=== PATIENT | male | born 1975 | race African-American/Black ===

== ENCOUNTER 2018-06-13 19:05 | Emergency (ER) | payer MEDICAID, OTHER ==
[~2018-06-13] VITALS: Ht 139.7 cm; Wt 61.2 kg
[2018-06-13] MEDS ORDERED: ONDANSETRON HCL 4 MG/2 ML VIAL IV ONE (19:30)
[2018-06-13] MEDS ORDERED: MORPHINE SULFATE 10 MG/ML INJ 1ML SDV IV ONE (19:30)
[2018-06-13] MEDS ORDERED: SODIUM CHLORIDE 0.9% 2,550 ML IV ONE (19:30)
[2018-06-13] MEDS ORDERED: OXYCODONE W/ ACETAMINOPHEN 5/325MG TABLET GT ONE (19:45)
[2018-06-13] MEDS ORDERED: LEVOFLOXACIN 750MG 150 ML IV SCH (20:00)
[2018-06-13 20:17] LABS: Basophils # (auto) 0.1 uL; Lymphocytes # (auto) 1.8 uL; Nucleated Red Blood Cells % 0.1 %; Red Cell Distribution Width 17.8 % (11.8-14.3)
[2018-06-13 20:19] LABS: Basophils % (auto) 0.8 % (0.0-2.0); Eosinophils # (auto) 0.5 uL; Eosinophils % (auto) 7.9 % (0.0-7.0); Hematocrit 43.8 % (41.0-53.0); Hemoglobin 13.8 g/dL (13.5-17.5); Lymphocytes % (auto) 25.9 % (10.0-50.0); Mean Corpuscular Hgb Conc. 31.5 g/dL (32.0-36.0); Mean Corpuscular Volume 73.1 fL (80.0-100.0); Monocytes # (auto) 0.4 uL; Monocytes % (auto) 5.2 % (0.0-12.0); Neutrophils # (auto) 4.1 uL; Neutrophils % (auto) 60.2 % (37.0-80.0); Platelet Count (auto) 361 10^3/uL (140-450); Red Blood Cells 5.99 10^6/uL (4.5-5.90); White Blood Cell 6.9 10^3/uL (4.4-10.8)
[2018-06-13 20:33] LABS: Albumin 3.2 g/dL (3.4-5.0); Anion Gap 9 (5-15); Blood Urea Nitrogen 10 mg/dL (7-18); Calcium 8.6 mg/dL (8.5-10.1); Carbon Dioxide 21 mmol/L (21-32); Chloride 108 mmol/L (98-107); Glucose 79 mg/dL (74-106); Potassium 3.7 mmol/L (3.5-5.1); Sodium 138 mmol/L (136-145)
[2018-06-13 20:35] LABS: Alanine Aminotransferase 11 U/L (16-61); Aspartate Aminotransferase 6 U/L (15-37); BUN/Creatinine Ratio 11.8; GFR African American 127 mL/min; GFR Non-African American 105 mL/min
[2018-06-13 20:40] LABS: Alkaline Phosphatase 138 U/L (45-117); Bilirubin, Total 0.3 mg/dL (0.2-1.0); INR 1.28 (0.9-1.15); Prothrombin Time 13.5 sec (9.27-12.13); Total Protein 9.3 g/dL (6.4-8.2)
[2018-06-13] MEDS ORDERED: IOHEXOL 300 MG/ML 100ML BOTTLE IJ ONE (20:45)
[2018-06-13] MEDS ORDERED: NALBUPHINE HCL 10 MG/1ml INJECTION IV ONE (21:00)
[2018-06-13 22:10] VITALS: BP 151/91
[2018-06-13 23:17] LABS: Urine Bacteria MANY /hpf (None Seen); Urine Blood 3+ /uL (Negative); Urine Mucus FEW (None Seen); Urine Specific Gravity 1.024 (1.001-1.035); Urine WBC 237 /hpf (0 - 3); Urine WBC Clumps PRESENT /hpf (None Seen)
== END 2018-06-13 23:56 | disposition home or self-care (01) ==
LOC: EDBD 19:05 → ER 19:15
DX: M53.3 Sacrococcygeal disorders, not elsewhere classified (principal); N39.0 Urinary tract infection, site not specified; K59.00 Constipation, unspecified; Z93.1 Gastrostomy status; Z88.6 Allergy status to analgesic agent
CPT/HCPCS: 36415; 43760; 72220; 74177; 80053; 81001; 83605; 84484; 85025; 85379; 85610; 85730; 87040; 87086; 96365; 96375; 99285; J1956; J2300; J2405; J7030; Q9967

== ENCOUNTER 2019-07-15 12:38 | Inpatient (IN) | payer MEDICAID ==
[~2019-07-15] VITALS: Ht 188 cm; Wt 154.8 kg
[~2019-07-15 12:38] MED LIST: AMIT10TA6 PO; GABA300C10 PO; HYDR-4833 PO; OXY20CRT PO
[2019-07-15 14:16] LABS: Basophils # (auto) 0 uL; Eosinophils # (auto) 0 uL; Eosinophils % (auto) 0.1 % (0.0-7.0)
[2019-07-15 14:18] LABS: Basophils % (auto) 0.2 % (0.0-2.0); Hematocrit 39.8 % (41.0-53.0); Hemoglobin 11.8 g/dL (13.5-17.5); Lymphocytes # (auto) 0.6 uL; Lymphocytes % (auto) 5.3 % (10.0-50.0); Mean Corpuscular Hemoglobin 20.2 pg (28.0-32.0); Mean Corpuscular Hgb Conc. 29.7 g/dL (32.0-36.0); Monocytes # (auto) 0.6 uL; Monocytes % (auto) 5.2 % (0.0-12.0); Neutrophils # (auto) 10.3 uL; Neutrophils % (auto) 89.2 % (37.0-80.0); Platelet Count (auto) 367 10^3/uL (140-450); Red Blood Cells 5.85 10^6/uL (4.5-5.90); Red Cell Distribution Width 18.7 % (11.8-14.3); White Blood Cell 11.5 10^3/uL (4.4-10.8)
[2019-07-15 14:29] LABS: Potassium 3.2 mmol/L (3.5-5.1)
[2019-07-15 14:33] LABS: Albumin 3.4 g/dL (3.4-5.0); BUN/Creatinine Ratio 13.8; Magnesium 2.4 mg/dL (1.6-2.6)
[2019-07-15 14:36] LABS: Bilirubin, Total 0.7 mg/dL (0.2-1.0)
[2019-07-15 15:26] LABS: Urine Bacteria MOD /hpf (None Seen); Urine Blood 2+ /uL (Negative); Urine Mucus FEW (None Seen); Urine Specific Gravity 1.012 (1.001-1.035); Urine WBC 111 /hpf (0 - 3)
[2019-07-15] MEDS ORDERED: HYDROmorphone HCL 2 MG/ML VL IV ONE (17:30)
[2019-07-15] MEDS ORDERED: PROMETHAZINE HCL 25 MG/ML 1ML IV ONE (17:30)
[2019-07-15] MEDS ORDERED: cefTRIAXone 1GM/50ML D5W 50 ML IV ONE (18:30)
[2019-07-15] MEDS ORDERED: POTASSIUM EFFERVESENT TAB 25 MEQ PO ONE (19:00)
[2019-07-15] MEDS ORDERED: NITROGLYCERIN 0.4 MG SL TAB SL PRN (19:30)
[2019-07-15] MEDS ORDERED: ACETAMINOPHEN 500 MG TAB PO PRN (19:30)
[2019-07-15] MEDS ORDERED: MORPHINE SULF INJ 2 MG/ML SYRINGE 1ML IV PRN ×3 (19:30→19:45)
[2019-07-15] MEDS ORDERED: ONDANSETRON HCL 4 MG/2 ML VIAL IV PRN (19:30)
[2019-07-15] MEDS: SODIUM CHLORIDE 0.9% 1,000 ML IV SCH (21:43)
[2019-07-15] MEDS: oxyCODONE ER 20 MG TAB PO SCH (21:55)
[2019-07-15 22:00] VITALS: BP 123/75
[2019-07-15] MEDS ORDERED: HYDROcodone-ACET 5/325MG TAB PO SCH (22:00)
--- NOTE | 2019-07-15 22:00 | NUR ---
MS admit from ER SESSIONS,EDWARD admitted to tele/MS after SBAR received. Patient oriented to Abeba smith RN, unit, room, bed, and unit policies regarding patient care and visiting hours. Patient weighed by bedscale and encouraged to call if they need something. All questions and concerns addressed, patient verbalized understanding. Note: Came per strecher awake alert oriented x 4,covering his face with blanket, placed on the bed comfortably, vital sign checked.
--- NOTE | 2019-07-15 22:00 | NUR ---
Checked the g.tube placement, refused to infuse a little air, so just checked for gastric content, there is, its in placed.
[2019-07-15] MEDS: GABAPENTIN 300 MG CAP PO SCH (22:16)
[2019-07-15] MEDS: AMITRIPTYLINE HCL 10 MG TAB PO SCH (22:16)
--- NOTE | 2019-07-15 22:30 | NUR ---
Refused to remove his dressing in the back of the sacrum and of course we cant take a picture of it, and said the wound care nurse will be the one to do it, and refused to change the diaper that he is on , that is wet and said its a little bit only.
[2019-07-16 00:58] VITALS: BP 123/75
[2019-07-16 04:43] VITALS: BP 123/70
[2019-07-16 05:20] LABS: Basophils # (auto) 0 uL; Basophils % (auto) 0.4 % (0.0-2.0); Eosinophils # (auto) 0 uL; Eosinophils % (auto) 0.6 % (0.0-7.0); Hematocrit 38.6 % (41.0-53.0); Hemoglobin 11.5 g/dL (13.5-17.5); Lymphocytes # (auto) 1.3 uL; Lymphocytes % (auto) 15.7 % (10.0-50.0); Mean Corpuscular Hemoglobin 20.5 pg (28.0-32.0); Mean Corpuscular Hgb Conc. 29.9 g/dL (32.0-36.0); Mean Corpuscular Volume 68.6 fL (80.0-100.0); Monocytes # (auto) 0.5 uL; Monocytes % (auto) 6.5 % (0.0-12.0); Neutrophils # (auto) 6.2 uL; Neutrophils % (auto) 76.8 % (37.0-80.0); Platelet Count (auto) 333 10^3/uL (140-450); Red Blood Cells 5.63 10^6/uL (4.5-5.90)
--- NOTE | 2019-07-16 05:30 | NUR ---
Refused to change his own diaper, covered his face with the blanket.
[2019-07-16] MEDS: GABAPENTIN 300 MG CAP PO SCH ×3 (05:34→21:48)
[2019-07-16] MEDS: AMITRIPTYLINE HCL 10 MG TAB PO SCH ×3 (05:34→21:48)
[2019-07-16] MEDS: SODIUM CHLORIDE 0.9% 1,000 ML IV SCH (05:39)
[2019-07-16 06:00] LABS: Potassium 3.6 mmol/L (3.5-5.1)
[2019-07-16 06:10] LABS: BUN/Creatinine Ratio 17.1; Calcium 9.2 mg/dL (8.5-10.1)
--- NOTE | 2019-07-16 07:18 | NUR ---
Report given to Sourav Ward, patient is resting ,no distress, does not want to be disturb, and want med. to be given in his g.tube, though regular diet ordered.
--- NOTE | 2019-07-16 07:25 | NUR ---
Open Shift Note Received report on patient, asleep in bed with covers over head, awoken to name. Patient shows no signs of distress at this time. Patient refuses to turn to assess sacrum and take wound care photos. Patient also refusing to allow assessment of suprapubic catheter, pulled covers back up over head. Bed in lowest locked position, side rails up x2 and call light within reach. Will continue to monitor.
[2019-07-16 09:00] VITALS: BP 115/63
[2019-07-16] MEDS: FAMOTIDINE 20 MG TAB PO SCH (09:58)
[2019-07-16] MEDS: oxyCODONE ER 20 MG TAB PO SCH ×2 (09:58→21:48)
[2019-07-16] MEDS: cefTRIAXone 1GM/50ML D5W 50 ML IV SCH (09:58)
[2019-07-16] MEDS ORDERED: DOCUSATE SOD 100 MG CAP PO SCH (10:30)
[2019-07-16] MEDS ORDERED: POLYETHYLENE GLYCOL 17 GM PWDR PO ONE (10:30)
[2019-07-16] MEDS ORDERED: LACTULOSE 20Gm/30ML SOLN PO PRN (11:15)
[2019-07-16] MEDS ORDERED: HYDROmorphone HCL 2 MG/ML VL IV ONE (11:15)
--- NOTE | 2019-07-16 11:53 | NUR ---
o/c note spoke to Mariya at [facility] ph [phone] , pt will resume HH with [facility] per Mariya start of care on Wednesday
--- NOTE | 2019-07-16 12:00 | NUR ---
Faxed [facility] Faxed patient's face sheet, last progress note and social service order to [facility]. [phone].
[2019-07-16] MEDS: DOCUSATE ORAL LIQUID 100 MG/10 ML UD GT SCH ×2 (12:18→21:48)
--- NOTE | 2019-07-16 12:42 | NUR ---
auth for [facility] per Princess ZEPEDA for [facility] is H [id number]
[2019-07-16 13:00] VITALS: BP 126/81
--- NOTE | 2019-07-16 15:37 | NUR ---
Dressing Change-Admission photo taken Patient allowed for nurse to remove previous dressing on sacrum and take admission photo. Wound cleansed with wound cleanser, ABD pads applied, dressing applied using diapers and medipore tape per patients demands.
[2019-07-16 16:43] VITALS: BP 136/58
--- NOTE | 2019-07-16 18:59 | NUR ---
Closing Note Patient sitting up in bed, shows no signs of distress at this time. Bed in lowest locked position, side rails up x2 and call light within reach.
--- NOTE | 2019-07-16 20:15 | NUR ---
Assessment Patient is A&O x4. Currently on RA with no s/s of distress or SOB. C/O 06/13 pain n back and abdomen. Pain management orders discussed with patient. 22 gauge IV in right hand intact and patent. Patient is nonambulatory due to paraplegia. Patient refuses assessment of abdomen or wounds. Educated patient on the importance of assessing these areas to ensure dressings are intact and G-tube, colostomy bag and suprapubic catheter are in place and patent. Patient still refuses. Bed is in low locked position with side rails up x2; call light is within reach. Will continue to monitor PRN.
--- NOTE | 2019-07-16 20:30 | NUR ---
Patient denies having a BM today. Refused lactulose.
[2019-07-16 22:00] VITALS: BP 115/72
[2019-07-16] MEDS ORDERED: MUPIROCIN 2% OINT 15gm or 22gm EACHNOSTRI SCH (22:00)
--- NOTE | 2019-07-17 01:45 | NUR ---
Patient reports having a BM. Declines emptying of colostomy bag at this time. Instructed to call for assistance when bag is no more than 3/4 full. Patient verbalizes understanding. Reports continued pain despite scheduled pain medications and difficulty sleeping. Will notify
--- NOTE | 2019-07-17 01:47 | NUR ---
Left message for Dr. Fátima Joseph to report patients request for sleep aid. Awaiting call back.
--- NOTE | 2019-07-17 03:05 | NUR ---
Assisted patient in changing colostomy bag due to 3/4 full of light brown soft stool. Patient tolerated well.
[2019-07-17 05:00] VITALS: BP 101/56
[2019-07-17] MEDS: GABAPENTIN 300 MG CAP PO SCH ×2 (05:43→16:23)
[2019-07-17] MEDS: AMITRIPTYLINE HCL 10 MG TAB PO SCH ×2 (05:43→14:00)
--- NOTE | 2019-07-17 06:33 | NUR ---
Patient is refusing lab draw. States, "Im trying to sleep".
[2019-07-17 09:00] VITALS: BP 107/62
[2019-07-17] MEDS: cefTRIAXone 1GM/50ML D5W 50 ML IV SCH (09:22)
[2019-07-17] MEDS: DOCUSATE ORAL LIQUID 100 MG/10 ML UD GT SCH (09:30)
[2019-07-17] MEDS: oxyCODONE ER 20 MG TAB PO SCH (09:31)
[2019-07-17] MEDS: FAMOTIDINE 20 MG TAB PO SCH (09:31)
[2019-07-17 10:40] LABS: Basophils # (auto) 0.1 uL; Eosinophils # (auto) 0.4 uL; Hematocrit 35.9 % (41.0-53.0); Lymphocytes # (auto) 1.1 uL; Neutrophils # (auto) 4.1 uL; Red Cell Distribution Width 18.8 % (11.8-14.3); White Blood Cell 6.1 10^3/uL (4.4-10.8)
[2019-07-17 10:42] LABS: Eosinophils % (auto) 6.2 % (0.0-7.0); Lymphocytes % (auto) 17.9 % (10.0-50.0); Mean Corpuscular Hemoglobin 20.6 pg (28.0-32.0); Mean Corpuscular Hgb Conc. 30.6 g/dL (32.0-36.0); Mean Corpuscular Volume 67.4 fL (80.0-100.0); Monocytes # (auto) 0.5 uL; Monocytes % (auto) 7.6 % (0.0-12.0); Neutrophils % (auto) 67.3 % (37.0-80.0); Nucleated Red Blood Cells % 0.1 %; Platelet Count (auto) 341 10^3/uL (140-450); Red Blood Cells 5.32 10^6/uL (4.5-5.90)
[2019-07-17 10:54] LABS: INR 1.27 (0.9-1.15); Partial Thromboplastin Time 27.1 sec (23.64-32.05)
[2019-07-17 10:56] LABS: BUN/Creatinine Ratio 7.5; Calcium 8.6 mg/dL (8.5-10.1); Potassium 3.6 mmol/L (3.5-5.1)
--- NOTE | 2019-07-17 11:13 | NUR ---
DR VILLEGAS CALLED ORDERED FOR PAIN MANAGEMENT CONSULT, ENTERED AND CARRIED OUT, GANG RIDER INFORMED OF CONSULT. PATIENT INDEPENDENTLY CHANGED COLOSTOMY BAG, OSTOMY BAG IS HALF FULL OF SOFT UNFORMED STOOL. PENDING MAG3 RENAL SCAN. WILL FOLLOW UP WITH IMAGING.
--- NOTE | 2019-07-17 11:21 | NUR ---
SPOKE WITH IMAGING, MAG3 RENAL SCAN WILL PROBABLY BE DONE THIS AFTERNOON.
--- NOTE | 2019-07-17 11:30 | NUR ---
WOUND CARE NOTE: PATIENT ADMITTED TO [facility] WITH DIAGNOSIS OF SEPSIS. HE WAS NOTED TO HAVE CHRONIC PRESSURE INJURIES OVER SACRUM, RIGHT ANKLE, HEEL. CURRENT MAGO SCORE IS 12. PATIENT IS PARAPLEGIC, BED/WHEELCHAIR BOUND. SPECIALTY AIR MATTRESS ORDERED. PATIENT TO BE PLACED, PENDING DELIVERY BY DAIN [facility]. PATIENT WAS NOTED UPON ADMIT TO HAVE WOUNDS. ALL WOUNDS PHOTOGRAPHED FOR REFERENCE BY BEDSIDE NURSE FOR REFERENCE. PATIENT HAS CHRONIC SMALL PRESSURE ULCERS OVER PINK, COLLAGEN SCARS TO BILATERAL SACRUM, BLISTER OVER COLLAGEN SCAR OF RIGHT HEEL, ESCHAR RIGHT ANKLE. PATIENT WOULD BENEFIT FROM DAILY/PRN DRESSING CHANGE TO SACRAL ULCERS, ANDREY FOAM BOOT TO BILATERAL FEET/HEELS, SPECIALTY AIR MATTRESS, DIETARY CONSULT, CONTINUED MONITORING BY WOUND CARE TEAM, SKIN/WOUND CARE PLAN (IMPLEMENTED). Addendum: 07/17/19 at 1624 by Emmanuelle Shah RN Amended: Links added.
--- NOTE | 2019-07-17 11:34 | NUR ---
NUTRITION CONSULT/ASSESSMENT NOTES Please refer to link notes of nutrition screen form filed under the intervention section of the plan of care for further details. Est. Needs based on IBW (86 kg) : 2150 kcal to 2400 kcal (25-28 kcal/kgBW), 86 gms to 99 gms pro (1.0-1.3 gms/kgIBW for wound healing). Will continue to monitor pertinent labs and reassess nutrient need prn Thank you for this consult. Addendum: 07/17/19 at [address] Amended: Links added.
[2019-07-17 13:00] VITALS: BP 127/72
--- NOTE | 2019-07-17 15:03 | NUR ---
Assessment Pt is a 43 yr old alert and oriented male. Pt is paralyzed and stated that he was admitted a UTI. Pt stated that he has his kids living with him who help take care of him as well as a caregiver and HH through [facility]. His daughter Dinorah is his emergency contact and stated that her number can be found in our charts. Pt receives assistance with to complete his ADL's, cooking and cleaning. Pt utilizes a w/c and hospital bed in the home. Pt stated that he was admitted with a UTI. Pt receives SSI. Pt stated that he has no interest in advanced directives presently. Pt stated that he has multiple family members who would be able to transport pt home upon d/c. Pt stated that he feels safe to d/c home with HH again. A resumption order for HH through [facility] will take place upon d/c. No other needs or concerns expressed from the pt at this time. Addendum: 07/17/19 at 1512 by JEFFREY PINA Amended: Links added.
[2019-07-17] MEDS ORDERED: FUROSEMIDE 40 MG/4 ML VIAL ONE (15:36)
--- NOTE | 2019-07-17 15:36 | NUR ---
NM CALLED AND STATED THAT THEY NEEDED THE FUROSEMIDE FOR ID RENAL SCAN PULLED AND BROUGHT DOWN TO ID. TELEPHONE ORDER PER DOCTOR LESTER FOR 40 MG IV FUROSEMIDE.
--- NOTE | 2019-07-17 15:39 | NUR ---
been off unit for MAG3 RENAL CSAN.
[2019-07-17] MEDS ORDERED: FUROSEMIDE 40 MG/4 ML VIAL IV ONE (16:00)
--- NOTE | 2019-07-17 16:08 | NUR ---
back from [facility] med. condition stable.
[2019-07-17 17:00] VITALS: BP 132/82
--- NOTE | 2019-07-17 17:46 | NUR ---
spoke with TOVA Wilson of doctor Clint Kerr. no nephrostomy needed per PA. will notify Dr Laughlin
--- NOTE | 2019-07-17 17:54 | NUR ---
INSISTS ON DIAPER, EXPLAINED TO PATIENT UNIT DOES NOT USE DIAPER. WOUND DRESSING NOT CHANGED DUE TO PATIENT WANTS TO WEAR DIAPER.
[2019-07-17] MEDS ORDERED: Ensure Enlive Chocolate 8oz Bottle PO SCH (18:00)
[2019-07-17] MEDS ORDERED: Pro-Stat SF 30ml Vanilla PO SCH (18:00)
[2019-07-17] MEDS ORDERED: CEPH-37 PO (18:03)
[2019-07-17] MEDS ORDERED: MUPI2OIN2 NAS (18:03)
[2019-07-17] MEDS ORDERED: [UNRECOGNIZED DRUG - CODE] GT (18:03)
--- NOTE | 2019-07-17 18:43 | NUR ---
PER PATIENT HIS SON IS UNABLE TO PICK HIM UP BECAUSE HE DON'T HAVE GAS. VOICE MAIL MESSAGE SENT TO DR Holli VILLEGAS. DISCHARGE PAPERS COMPLETED.
--- NOTE | 2019-07-17 19:00 | NUR ---
Went to see patient together with House Sup re: D/C order by Dr Laughlin and transportation issue.But the moment we enter the room the patient is rude and yelling insisting that he is not going home tonight . Tried to discuss with him how we can contact family and offer assistance re : "gas money " but patient is uncooperative and not listening. Patient doesn't want to provide any phone number to contact. He said he will go home tomorrow and he will be the one to contact family.
--- NOTE | 2019-07-17 19:10 | NUR ---
PER DUANE RANGEL TOO LATE TO ASSIST WITH TRANSPORT.
--- NOTE | 2019-07-17 19:18 | NUR ---
MD Called/paged Dr.L. Laughlin called re: patient unable to be dc'd home tonight due to transportation issue.Dr Jhaveri responded with the call and said "he cannot hold the discharge tonight". Need to inform Dr Belia Laughlin in AM.
--- NOTE | 2019-07-17 20:30 | NUR ---
UPON ARRIVAL TO ROOM PATIENT IS YELLING " I AM LEAVING THIS PLACE, MY KIDS ARE PICKING ME UP NOW. BRING ME THE PAPERS SO I CAN SIGN AND LEAVE." TRIED TO EXPLAIN TO PATIENT ABOUT HIS CARE AND PLAN. PATIENT REFUSED.
--- NOTE | 2019-07-17 20:35 | NUR ---
INSTRUCTED PATIENT ON DISCHARGE PAPERWORK. ALL QUESTIONS AND CONCERNS ANSWERED. PATIENT WAS RUDE AND YELLING THAT HE REFUSED TO HAVE PHOTOS TAKEN FOR DISCHARGE. PER PATIENT" MY KIDS ARE PICKING ME UP I AM LEAVING THIS PLACE AND NOT COMING BACK." PER PATIENT" I REMOVED MY IV EARLIER TODAY BECAUSE I AM LEAVING." INFORMED PATIENT I WOULD APPLY A GAUZE AND WRAP THE AREA PATIENT REFUSED.
--- NOTE | 2019-07-17 20:42 | NUR ---
PATIENT DISCHARGE LEFT VIA HOME WHEELCHAIR WITH HIS FAMILY.
--- NOTE | 2019-07-18 08:13 | NUR ---
freight caller 07/17/19 I was paged by nurse Shanelle letting me know that patient states he has no transportation home tonight-that his family member ran out of gas-I let her know that patient has transportation benefit through [facility] but it can not be arranged after hours-I did offer to give nurse phone numbers of transportation agencies that patient would have to pay for out of pocket.
== END 2019-07-17 20:42 | disposition home health service (06) | DRG 720 ==
LOC: EDBD 12:38 → ER 12:41 → OVERFLOW 12:42 → CENTRAL 22:10
PROVIDERS: ADMIT Nurse Practitioner Acute Care; ATTEND Hospitalist
DX: A41.9 Sepsis, unspecified organism (principal); L89.43 Pressure ulcer of contiguous site of back, buttock and hip, stage 3; G82.20 Paraplegia, unspecified; G62.9 Polyneuropathy, unspecified; N39.0 Urinary tract infection, site not specified; E87.6 Hypokalemia; D50.9 Iron deficiency anemia, unspecified; K59.00 Constipation, unspecified; N13.6 Pyonephrosis; G89.29 Other chronic pain; M54.5 Low back pain; R16.1 Splenomegaly, not elsewhere classified; Z93.3 Colostomy status; Z79.891 Long term (current) use of opiate analgesic; Z93.1 Gastrostomy status; Z93.59 Other cystostomy status; Z88.6 Allergy status to analgesic agent; Z88.5 Allergy status to narcotic agent; Z87.440 Personal history of urinary (tract) infections; Z22.322 Carrier or suspected carrier of Methicillin resistant Staphylococcus aureus
CPT/HCPCS: 36415; 71045; 74176; 78707; 80048; 80053; 81001; 82150; 83605; 83735; 85025; 85610; 85730; 87040; 87081; 87086; 96365; 96375; G0378; J0696; J2405

== ENCOUNTER 2021-11-04 11:06 | Inpatient (IN) | payer MEDICAID ==
[~2021-11-04] VITALS: Ht 157.5 cm; Wt 60.0 kg
[~2021-11-04 11:06] MED LIST changes: -AMIT10TA6 PO; +AMIT1TAB34 PO; +CEPH-37 PO; +MUPI2OIN2 NAS; +[UNRECOGNIZED DRUG - CODE] GT
[2021-11-04] MEDS ORDERED: SODIUM CHLORIDE 0.9% 500 ML IVB ONE (11:45)
[2021-11-04 13:12] LABS: Basophils # (auto) 0 10 ^3/uL (0-0.2); Basophils % (auto) 0.2 % (0.0-2.0); Eosinophils # (auto) 0 10 ^3/uL (0-0.8); Hemoglobin 7.7 g/dL (13.5-17.5)
[2021-11-04 13:13] LABS: Eosinophils % (auto) 0.1 % (0.0-7.0); Hematocrit 25.4 % (41.0-53.0); Lymphocytes # (auto) 1.1 10 ^3/uL (0.4-5.4); Mean Corpuscular Hemoglobin 20.8 pg (28.0-32.0); Mean Corpuscular Hgb Conc. 30.4 g/dL (32.0-36.0); Mean Corpuscular Volume 68.4 fL (80.0-100.0); Monocytes % (auto) 6.4 % (0.0-12.0); Neutrophils # (auto) 13.1 10 ^3/uL (1.6-8.6); Neutrophils % (auto) 86.3 % (37.0-80.0); Red Blood Cells 3.72 10^6/uL (4.5-5.90); Red Cell Distribution Width 21.1 % (11.8-14.3); White Blood Cell 15.1 10^3/uL (4.4-10.8)
[2021-11-04 13:29] LABS: Albumin 1.2 g/dL (3.4-5.0); Potassium 4.5 mmol/L (3.5-5.1)
[2021-11-04 13:34] LABS: Bilirubin, Total 0.4 mg/dL (0.2-1.0); Total Protein 7.5 g/dL (6.4-8.2)
[2021-11-04] MEDS ORDERED: ONDANSETRON HCL 4 MG/2 ML VIAL IV ONE (14:30)
[2021-11-04] MEDS ORDERED: HYDROmorphone HCL 2 MG/ML VL IV ONE (14:30)
[2021-11-04 15:00] LABS: Urine Amorphous Crystal FEW /hpf (None Seen); Urine Bacteria FEW /hpf (None Seen); Urine Blood 3+ /uL (Negative); Urine Mucus FEW (None Seen); Urine Specific Gravity 1.017 (1.001-1.035); Urine WBC 964 /hpf (0 - 3); Urine WBC Clumps PRESENT /hpf (None Seen)
[2021-11-04 15:37] LABS: Phencyclidine Screen, Urine NEGATIVE (NEGATIVE)
[2021-11-04 15:47] LABS: Amphetamine Screen, Urine NEGATIVE (NEGATIVE); Barbiturate Scree,Urine NEGATIVE (NEGATIVE); Benzodiazephine Screen, Urine NEGATIVE (NEGATIVE); Cannabinoid Screen, Urine POSITIVE (NEGATIVE); Cocaine Screen, Urine NEGATIVE (NEGATIVE); Opiate Scree,Urine POSITIVE (NEGATIVE)
[2021-11-04] MEDS ORDERED: SODIUM CHLORIDE 0.9% 1,000 ML IV ONE (16:00)
[2021-11-04] MEDS ORDERED: cefTRIAXone 1GM/50ML D5W 50 ML IV ONE (16:00)
[2021-11-04] MEDS ORDERED: HYDROcodone-ACET 5/325MG TAB PO PRN (17:30)
[2021-11-04] MEDS ORDERED: ONDANSETRON HCL 4 MG/2 ML VIAL IV PRN (17:30)
[2021-11-04] MEDS ORDERED: NITROGLYCERIN 0.4 MG SL TAB SL PRN (17:30)
[2021-11-04] MEDS ORDERED: DOCUSATE SOD 100 MG CAP PO PRN (17:30)
[2021-11-04] MEDS ORDERED: ACETAMINOPHEN 325 MG TAB PO PRN (17:30)
[2021-11-04] MEDS: SODIUM CHLORIDE 0.9% 1,000 ML IV SCH (18:37)
[2021-11-04] MEDS: DexAMETHasone SOD PHOS 10MG/1ML VIAL INJ IV SCH (18:38)
[2021-11-04] MEDS: ASCORBIC ACID 500 MG TAB PO SCH (23:35)
[2021-11-05] MEDS: OXYCODONE W/ ACETAMINOPHEN 5/325MG TABLET PO PRN (03:28)
[2021-11-05 03:46] VITALS: BP 97/59
[2021-11-05 05:00] VITALS: BP 106/57
[2021-11-05] MEDS ORDERED: TIZA4TAB9 PO (08:14)
[2021-11-05 09:00] VITALS: BP_SYST 107; BP_SYST 133; BP_DIAS 66; BP_DIAS 82
[2021-11-05] MEDS: DexAMETHasone SOD PHOS 10MG/1ML VIAL INJ IV SCH (10:00)
[2021-11-05] MEDS: CHOLECALCIFEROL (VITD3) 2,000 UNIT CAP/TAB PO SCH (10:00)
[2021-11-05] MEDS: ASCORBIC ACID 500 MG TAB PO SCH ×2 (10:00→22:00)
[2021-11-05] MEDS: ZINC SULFATE 220mg CAP or TAB PO SCH (10:00)
[2021-11-05] MEDS ORDERED: ENOXAPARIN SOD 40 MG/0.4 ML SYRINGE SC SCH (10:00)
[2021-11-05] MEDS: levoFLOXacin 500MG 100 ML IV SCH (10:00)
[2021-11-05] MEDS: SODIUM CHLORIDE 0.9% 1,000 ML IV SCH ×2 (10:10→15:36)
[2021-11-05 10:51] LABS: Albumin 1.2 g/dL (3.4-5.0); Calcium 8.4 mg/dL (8.5-10.1); Potassium 5.2 mmol/L (3.5-5.1)
[2021-11-05 10:55] LABS: BUN/Creatinine Ratio 20.5; Bilirubin, Total 0.4 mg/dL (0.2-1.0); Total Protein 7.9 g/dL (6.4-8.2)
[2021-11-05] MEDS ORDERED: VANCOMYCIN PER PHARMACY 0 MG IV SCH (11:15)
[2021-11-05] MEDS: FERROUS SULFATE 325mg EC TAB PO SCH ×2 (12:00→18:00)
[2021-11-05 13:00] VITALS: BP 116/74
[2021-11-05] MEDS: VANCOMYCIN 1GM/250ML 250 ML IV SCH (13:00)
[2021-11-05] MEDS: metroNIDAZOLE 500MG/100ML 100 ML IV SCH ×2 (14:00→22:48)
[2021-11-05] MEDS: HYDROmorphone HCL 2 MG/ML VL IV PRN ×2 (15:38→19:58)
[2021-11-05 17:00] VITALS: BP 144/72
[2021-11-05 21:39] VITALS: BP 117/74
[2021-11-05] MEDS: oxyCODONE ER 10 MG TAB PO SCH (22:00)
[2021-11-06] MEDS: HYDROmorphone HCL 2 MG/ML VL IV PRN ×3 (00:21→20:32)
[2021-11-06] MEDS: VANCOMYCIN 1GM/250ML 250 ML IV SCH ×2 (01:00→15:26)
[2021-11-06 05:00] VITALS: BP 123/71
[2021-11-06] MEDS: metroNIDAZOLE 500MG/100ML 100 ML IV SCH ×3 (06:00→19:30)
[2021-11-06 07:47] LABS: Basophils # (auto) 0.2 10 ^3/uL (0-0.2); Basophils % (auto) 1.8 % (0.0-2.0); Eosinophils # (auto) 0 10 ^3/uL (0-0.8); Eosinophils % (auto) 0.1 % (0.0-7.0); Hematocrit 28.8 % (41.0-53.0); Hemoglobin 8.5 g/dL (13.5-17.5); Lymphocytes # (auto) 0.3 10 ^3/uL (0.4-5.4); Lymphocytes % (auto) 2.9 % (10.0-50.0); Mean Corpuscular Hgb Conc. 29.4 g/dL (32.0-36.0); Monocytes # (auto) 0.2 10 ^3/uL (0-1.3); Monocytes % (auto) 1.7 % (0.0-12.0); Neutrophils # (auto) 11.3 10 ^3/uL (1.6-8.6); Neutrophils % (auto) 93.5 % (37.0-80.0); Nucleated Red Blood Cells % 0.1 %; Red Blood Cells 4.08 10^6/uL (4.5-5.90); White Blood Cell 12.1 10^3/uL (4.4-10.8)
[2021-11-06 07:49] LABS: Mean Corpuscular Hemoglobin 20.8 pg (28.0-32.0); Mean Corpuscular Volume 70.6 fL (80.0-100.0); Red Cell Distribution Width 22.6 % (11.8-14.3)
[2021-11-06] MEDS: FERROUS SULFATE 325mg EC TAB PO SCH ×3 (08:00→18:00)
[2021-11-06] MEDS: CHOLECALCIFEROL (VITD3) 2,000 UNIT CAP/TAB PO SCH ×2 (10:00→15:26)
[2021-11-06] MEDS: oxyCODONE ER 10 MG TAB PO SCH ×2 (10:00→21:32)
[2021-11-06] MEDS: ASCORBIC ACID 500 MG TAB PO SCH ×3 (10:00→21:32)
[2021-11-06] MEDS: ZINC SULFATE 220mg CAP or TAB PO SCH (10:00)
[2021-11-06 13:00] VITALS: BP 118/69
[2021-11-06] MEDS: DexAMETHasone SOD PHOS 10MG/1ML VIAL INJ IV SCH (15:26)
[2021-11-06 15:55] LABS: Anion Gap 8 (5-15); BUN/Creatinine Ratio 22.2; Blood Urea Nitrogen 26 mg/dL (7-18); Calcium 8.7 mg/dL (8.5-10.1); Carbon Dioxide 21 mmol/L (21-32); Chloride 106 mmol/L (98-107); GFR African American 86 mL/min; GFR Non-African American 71 mL/min; Glucose 98 mg/dL (74-106); Potassium 4.3 mmol/L (3.5-5.1); Sodium 135 mmol/L (136-145)
[2021-11-06 17:00] VITALS: BP 129/71
[2021-11-06] MEDS: levoFLOXacin 500MG 100 ML IV SCH (18:00)
[2021-11-06] MEDS: SODIUM CHLORIDE 0.9% 1,000 ML IV SCH (19:43)
[2021-11-06 21:50] VITALS: BP 123/67
[2021-11-07] VITALS (8 sets, daily range): BP systolic 115–144; BP diastolic 70–79
[2021-11-07] MEDS: VANCOMYCIN 1GM/250ML 250 ML IV SCH ×2 (04:08→17:26)
[2021-11-07] MEDS: HYDROmorphone HCL 2 MG/ML VL IV PRN ×3 (04:36→18:39)
[2021-11-07] MEDS: metroNIDAZOLE 500MG/100ML 100 ML IV SCH ×3 (05:37→21:25)
[2021-11-07 07:09] LABS: Basophils # (auto) 0 10 ^3/uL (0-0.2); Basophils % (auto) 0.2 % (0.0-2.0); Eosinophils # (auto) 0 10 ^3/uL (0-0.8); Monocytes # (auto) 0.4 10 ^3/uL (0-1.3); Nucleated Red Blood Cells % 0.1 %
[2021-11-07 07:11] LABS: Lymphocytes # (auto) 0.3 10 ^3/uL (0.4-5.4); Lymphocytes % (auto) 3.6 % (10.0-50.0); Mean Corpuscular Hemoglobin 21.4 pg (28.0-32.0); Mean Corpuscular Hgb Conc. 30.6 g/dL (32.0-36.0); Mean Corpuscular Volume 69.8 fL (80.0-100.0); Monocytes % (auto) 3.8 % (0.0-12.0); Neutrophils # (auto) 9.1 10 ^3/uL (1.6-8.6); Neutrophils % (auto) 92.4 % (37.0-80.0); Red Blood Cells 3.14 10^6/uL (4.5-5.90); White Blood Cell 9.8 10^3/uL (4.4-10.8)
[2021-11-07 07:23] LABS: Red Cell Distribution Width 21.9 % (11.8-14.3)
[2021-11-07 07:24] LABS: Hemoglobin 6.7 g/dL (13.5-17.5)
[2021-11-07 07:29] LABS: Calcium 8.2 mg/dL (8.5-10.1); Potassium 4.1 mmol/L (3.5-5.1)
[2021-11-07 07:32] LABS: BUN/Creatinine Ratio 24.2
[2021-11-07] MEDS: ASCORBIC ACID 500 MG TAB PO SCH ×2 (10:00→21:26)
[2021-11-07] MEDS: ZINC SULFATE 220mg CAP or TAB PO SCH (10:00)
[2021-11-07] MEDS: CHOLECALCIFEROL (VITD3) 2,000 UNIT CAP/TAB PO SCH (10:00)
[2021-11-07] MEDS: oxyCODONE ER 10 MG TAB PO SCH ×2 (10:00→21:26)
[2021-11-07] MEDS: FERROUS SULFATE 325mg EC TAB PO SCH ×3 (10:11→17:26)
[2021-11-07] MEDS: DexAMETHasone SOD PHOS 10MG/1ML VIAL INJ IV SCH (10:11)
[2021-11-07] MEDS: levoFLOXacin 500MG 100 ML IV SCH (10:11)
[2021-11-07] MEDS: SODIUM CHLORIDE 0.9% 1,000 ML IV SCH (12:44)
[2021-11-07 23:28] LABS: Hematocrit 25.9 % (41.0-53.0)
[2021-11-08 03:35] LABS: Eosinophils # (auto) 0 10 ^3/uL (0-0.8); Hemoglobin 8.3 g/dL (13.5-17.5); Mean Corpuscular Volume 72.5 fL (80.0-100.0); Nucleated Red Blood Cells % 0.1 %
[2021-11-08 03:39] LABS: Basophils # (auto) 0.1 10 ^3/uL (0-0.2); Basophils % (auto) 0.5 % (0.0-2.0); Hematocrit 26.1 % (41.0-53.0); Lymphocytes # (auto) 0.5 10 ^3/uL (0.4-5.4); Lymphocytes % (auto) 4.8 % (10.0-50.0); Mean Corpuscular Hgb Conc. 31.8 g/dL (32.0-36.0); Monocytes # (auto) 0.4 10 ^3/uL (0-1.3); Monocytes % (auto) 4.4 % (0.0-12.0); Neutrophils # (auto) 8.7 10 ^3/uL (1.6-8.6); Neutrophils % (auto) 90.3 % (37.0-80.0); Red Blood Cells 3.61 10^6/uL (4.5-5.90); White Blood Cell 9.7 10^3/uL (4.4-10.8)
[2021-11-08 03:50] LABS: INR 1.71 (0.9-1.15)
[2021-11-08] MEDS: VANCOMYCIN 1GM/250ML 250 ML IV SCH (04:00)
[2021-11-08 04:22] LABS: Red Cell Distribution Width 23.4 % (11.8-14.3)
[2021-11-08 05:00] VITALS: BP 128/70
[2021-11-08] MEDS: metroNIDAZOLE 500MG/100ML 100 ML IV SCH ×3 (05:42→22:31)
[2021-11-08] MEDS: SODIUM CHLORIDE 0.9% 1,000 ML IV SCH ×2 (05:42→21:08)
[2021-11-08] MEDS: FERROUS SULFATE 325mg EC TAB PO SCH ×3 (08:00→18:00)
[2021-11-08] MEDS: DexAMETHasone SOD PHOS 10MG/1ML VIAL INJ IV SCH (09:35)
[2021-11-08] MEDS: ZINC SULFATE 220mg CAP or TAB PO SCH (09:36)
[2021-11-08] MEDS: levoFLOXacin 500MG 100 ML IV SCH (09:36)
[2021-11-08] MEDS: oxyCODONE ER 10 MG TAB PO SCH ×2 (09:36→22:00)
[2021-11-08] MEDS: PANTOPRAZOLE 40 MG/10 ML VIAL INJ IV SCH (09:36)
[2021-11-08] MEDS: ASCORBIC ACID 500 MG TAB PO SCH ×2 (09:37→22:30)
[2021-11-08] MEDS: CHOLECALCIFEROL (VITD3) 2,000 UNIT CAP/TAB PO SCH (09:37)
[2021-11-08] MEDS ORDERED: GASTROGRAFIN 30 ML SOL ONE (16:24)
[2021-11-08 20:00] VITALS: BP 98/51
[2021-11-08 22:25] VITALS: BP 98/51
[2021-11-08] MEDS: HYDROmorphone HCL 2 MG/ML VL IV PRN (22:39)
[2021-11-09] MEDS: VANCOMYCIN 1GM/250ML 250 ML IV SCH (00:30)
[2021-11-09] MEDS: HYDROmorphone HCL 2 MG/ML VL IV PRN ×4 (04:14→20:13)
[2021-11-09 05:00] VITALS: BP 110/63
[2021-11-09] MEDS: metroNIDAZOLE 500MG/100ML 100 ML IV SCH ×3 (05:59→21:55)
[2021-11-09] MEDS: FERROUS SULFATE 325mg EC TAB PO SCH ×3 (07:50→16:34)
[2021-11-09] MEDS: ZINC SULFATE 220mg CAP or TAB PO SCH (07:50)
[2021-11-09] MEDS: CHOLECALCIFEROL (VITD3) 2,000 UNIT CAP/TAB PO SCH (07:51)
[2021-11-09] MEDS: ASCORBIC ACID 500 MG TAB PO SCH ×2 (07:51→21:56)
[2021-11-09] MEDS: oxyCODONE ER 10 MG TAB PO SCH ×2 (07:51→21:55)
[2021-11-09 09:00] VITALS: BP 118/72
[2021-11-09] MEDS: levoFLOXacin 500MG 100 ML IV SCH (09:15)
[2021-11-09] MEDS: DexAMETHasone SOD PHOS 10MG/1ML VIAL INJ IV SCH (09:15)
[2021-11-09] MEDS: PANTOPRAZOLE 40 MG/10 ML VIAL INJ IV SCH (09:16)
[2021-11-09] MEDS: SODIUM CHLORIDE 0.9% 1,000 ML IV SCH (11:31)
[2021-11-09] MEDS: METOPROLOL TARTRATE 1MG/1ML-5ML VIAL IV PRN ×2 (11:32→18:09)
[2021-11-09 13:00] VITALS: BP 115/84
[2021-11-09 17:00] VITALS: BP 142/88
[2021-11-09 20:00] VITALS: BP 116/71
[2021-11-09 22:00] VITALS: BP 126/86
[2021-11-10] MEDS: METOPROLOL TARTRATE 1MG/1ML-5ML VIAL IV PRN ×3 (00:40→18:09)
[2021-11-10] MEDS: HYDROmorphone HCL 2 MG/ML VL IV PRN (03:08)
[2021-11-10 05:00] VITALS: BP 132/87
[2021-11-10] MEDS: metroNIDAZOLE 500MG/100ML 100 ML IV SCH (06:25)
[2021-11-10] MEDS: SODIUM CHLORIDE 0.9% 1,000 ML IV SCH ×2 (06:50→23:51)
[2021-11-10] MEDS: VANCOMYCIN 1GM/250ML 250 ML IV SCH (07:25)
[2021-11-10] MEDS: FERROUS SULFATE 325mg EC TAB PO SCH ×3 (08:00→18:00)
[2021-11-10 08:30] VITALS: BP 155/90
[2021-11-10] MEDS: levoFLOXacin 500MG 100 ML IV SCH (10:44)
[2021-11-10] MEDS: DexAMETHasone SOD PHOS 10MG/1ML VIAL INJ IV SCH (10:44)
[2021-11-10] MEDS: PANTOPRAZOLE 40 MG/10 ML VIAL INJ IV SCH (10:45)
[2021-11-10] MEDS: ZINC SULFATE 220mg CAP or TAB PO SCH ×2 (10:45→11:13)
[2021-11-10] MEDS: oxyCODONE ER 10 MG TAB PO SCH ×2 (10:46→11:11)
[2021-11-10] MEDS: ASCORBIC ACID 500 MG TAB PO SCH ×2 (10:47→11:13)
[2021-11-10] MEDS: CHOLECALCIFEROL (VITD3) 2,000 UNIT CAP/TAB PO SCH ×2 (10:47→11:13)
[2021-11-10 12:30] VITALS: BP 137/94
[2021-11-10] MEDS: MEROPENEM 1GM IVPB 100 ML IV SCH ×2 (14:11→22:53)
[2021-11-10] MEDS ORDERED: SODIUM CHLORIDE 0.9% 500 ML IV ONE (21:30)
[2021-11-11] VITALS (10 sets, daily range): BP systolic 83–151; BP diastolic 59–96
[2021-11-11] MEDS: MEROPENEM 1GM IVPB 100 ML IV SCH ×4 (05:36→20:16)
[2021-11-11] MEDS: FERROUS SULFATE 325mg EC TAB PO SCH ×3 (08:00→18:00)
[2021-11-11] MEDS: oxyCODONE ER 10 MG TAB PO SCH ×2 (09:22→22:00)
[2021-11-11] MEDS: ASCORBIC ACID 500 MG TAB PO SCH ×2 (09:23→22:00)
[2021-11-11] MEDS: DexAMETHasone SOD PHOS 10MG/1ML VIAL INJ IV SCH (10:30)
[2021-11-11] MEDS: PANTOPRAZOLE 40 MG/10 ML VIAL INJ IV SCH (10:30)
[2021-11-11 14:20] LABS: Hematocrit 32.6 % (41.0-53.0); Hemoglobin 9.7 g/dL (13.5-17.5); Mean Corpuscular Hemoglobin 22.6 pg (28.0-32.0); Mean Corpuscular Hgb Conc. 29.9 g/dL (32.0-36.0); Mean Corpuscular Volume 75.7 fL (80.0-100.0); Red Cell Distribution Width 24.3 % (11.8-14.3)
[2021-11-11 14:22] LABS: Basophils % (manual) 0 (0.0-2.0); Blast Cells 0; Eosinophils % (manual) 0 (0-7); Metamyelocytes % 0; Monocytes % (manual) 0 (0-12); Myelocytes % 0; Promyelocytes % 0; Reactive Lymphocytes 0
[2021-11-11 14:38] LABS: BUN/Creatinine Ratio 10.6; Calcium 8.7 mg/dL (8.5-10.1); Potassium 3.4 mmol/L (3.5-5.1)
[2021-11-11 14:47] LABS: Band Neutrophils % (manual) 1; Lymphocytes % (manual) 2 (10.0-50.0)
[2021-11-11] MEDS ORDERED: ETOMIDATE (2MG/ML) 20ML VIAL IV ONE ×2 (15:26→15:45)
[2021-11-11] MEDS ORDERED: SUCCINYLCHOLINE CHLORIDE 20 MG/ML 10ML VIAL IV ONE ×2 (15:27→15:45)
[2021-11-11] MEDS ORDERED: fentaNYL Drip 2500mCg/250mlNS 250 ML IV ONE (15:31)
[2021-11-11] MEDS ORDERED: MIDAZOLAM DRIP 50 mg/50mL 50 ML IV ONE ×2 (15:31→16:45)
[2021-11-11] MEDS ORDERED: NOREPINEPHRINE 8 MG/250ML KIT 250 ML IV ONE (15:40)
[2021-11-11] MEDS: SODIUM CHLORIDE 0.9% 1,000 ML IV SCH (16:10)
[2021-11-11] MEDS ORDERED: PHENYLEPHRINE IV 250 ML IV ONE (16:28)
[2021-11-11] MEDS ORDERED: VANCOMYCIN 1GM/250ML 250 ML IV SCH (17:00)
[2021-11-11] MEDS ORDERED: PROPOFOL 200 ML IV ONE (18:37)
[2021-11-11] MEDS: PROPOFOL 100 ML IV SCH (19:00)
[2021-11-11 20:24] LABS: BUN/Creatinine Ratio 11.1; Calcium 8.5 mg/dL (8.5-10.1); Potassium 3.2 mmol/L (3.5-5.1)
[2021-11-11] MEDS: PHENYLEPHRINE IV 250 ML IV SCH (20:30)
[2021-11-11] MEDS: MIDAZOLAM DRIP 50 mg/50mL 50 ML IV SCH (20:30)
[2021-11-11] MEDS: NOREPINEPHRINE 8 MG/250ML KIT 250 ML IV SCH (20:30)
[2021-11-11] MEDS: VANCOMYCIN 1GM/250ML 250 ML IV SCH (23:00)
[2021-11-12] VITALS (25 sets, daily range): BP systolic 96–122; BP diastolic 67–87
[2021-11-12] MEDS: PROPOFOL 100 ML IV SCH ×2 (02:00→14:03)
[2021-11-12] MEDS: MIDAZOLAM DRIP 50 mg/50mL 50 ML IV SCH ×3 (02:00→18:52)
[2021-11-12] MEDS: VANCOMYCIN 1GM/250ML 250 ML IV SCH (02:12)
[2021-11-12 04:38] LABS: Hemoglobin 10.1 g/dL (13.5-17.5); Mean Corpuscular Hemoglobin 22.7 pg (28.0-32.0)
[2021-11-12 04:43] LABS: Hematocrit 33.4 % (41.0-53.0); Mean Corpuscular Hgb Conc. 30.1 g/dL (32.0-36.0); Mean Corpuscular Volume 75.4 fL (80.0-100.0); Red Blood Cells 4.43 10^6/uL (4.5-5.90)
[2021-11-12] MEDS: PHENYLEPHRINE IV 250 ML IV SCH ×3 (04:50→21:30)
[2021-11-12 04:53] LABS: BUN/Creatinine Ratio 12.7; Calcium 8.2 mg/dL (8.5-10.1); Potassium 3.5 mmol/L (3.5-5.1)
[2021-11-12 05:02] LABS: Red Cell Distribution Width 25.5 % (11.8-14.3)
[2021-11-12 05:03] LABS: Basophils % (manual) 0 (0.0-2.0); Blast Cells 0; Eosinophils % (manual) 0 (0-7); Metamyelocytes % 0; Myelocytes % 0; Promyelocytes % 0; Reactive Lymphocytes 0; White Blood Cell 46.1 10^3/uL (4.4-10.8)
[2021-11-12] MEDS: MEROPENEM 1GM IVPB 100 ML IV SCH ×3 (06:00→22:00)
[2021-11-12 06:36] LABS: Band Neutrophils % (manual) 16; Lymphocytes % (manual) 4 (10.0-50.0); Monocytes % (manual) 2 (0-12)
[2021-11-12] MEDS: SODIUM CHLORIDE 0.9% 1,000 ML IV SCH (08:50)
[2021-11-12] MEDS: PANTOPRAZOLE 40 MG/10 ML VIAL INJ IV SCH (09:23)
[2021-11-12] MEDS: DexAMETHasone SOD PHOS 10MG/1ML VIAL INJ IV SCH (09:23)
[2021-11-12] MEDS: ZINC SULFATE 220mg CAP or TAB PO SCH (09:23)
[2021-11-12] MEDS: oxyCODONE ER 10 MG TAB PO SCH ×2 (09:24→22:00)
[2021-11-12] MEDS: FERROUS SULFATE 325mg EC TAB PO SCH ×3 (09:24→18:03)
[2021-11-12] MEDS: ASCORBIC ACID 500 MG TAB PO SCH ×2 (09:24→22:00)
[2021-11-12] MEDS: CHOLECALCIFEROL (VITD3) 2,000 UNIT CAP/TAB PO SCH (09:24)
[2021-11-12] MEDS ORDERED: SODIUM BICARBONATE 8.4% INJ 50ML SYRINGE IV ONE (11:59)
[2021-11-12] MEDS ORDERED: EPINEPHrine HCL 1 MG/10 ML SYRG IV ONE (11:59)
[2021-11-12] MEDS ORDERED: ENOXAPARIN SOD 40 MG/0.4 ML SYRINGE SC SCH (15:30)
[2021-11-12] MEDS: ENOXAPARIN SOD 60 MG/0.6 ML SYRINGE SC SCH (15:44)
[2021-11-12] MEDS: SOD CHL 0.45% 1,000 ML IV SCH (18:02)
[2021-11-12] MEDS: NOREPINEPHRINE 8 MG/250ML KIT 250 ML IV SCH (20:30)
[2021-11-13] VITALS (26 sets, daily range): BP systolic 89–138; BP diastolic 57–91
[2021-11-13] MEDS: MIDAZOLAM DRIP 50 mg/50mL 50 ML IV SCH (01:00)
[2021-11-13] MEDS: SOD CHL 0.45% 1,000 ML IV SCH ×3 (02:30→19:43)
[2021-11-13] MEDS: ENOXAPARIN SOD 60 MG/0.6 ML SYRINGE SC SCH ×2 (03:30→15:48)
[2021-11-13] MEDS: MEROPENEM 1GM IVPB 100 ML IV SCH ×3 (05:04→22:18)
[2021-11-13 05:15] LABS: Basophils # (auto) 0 10 ^3/uL (0-0.2); Eosinophils # (auto) 0 10 ^3/uL (0-0.8); Monocytes # (auto) 0.3 10 ^3/uL (0-1.3); Neutrophils # (auto) 14.1 10 ^3/uL (1.6-8.6)
[2021-11-13 05:33] LABS: Calcium 6.5 mg/dL (8.5-10.1); Phosphorus 3.3 mg/dL (2.5-4.90)
[2021-11-13] MEDS ORDERED: PHENYLEPHRINE HCL 10 MG/ML VL ONE (05:35)
[2021-11-13 05:48] LABS: Basophils % (auto) 0.1 % (0.0-2.0); Hematocrit 26.7 % (41.0-53.0); Hemoglobin 7.9 g/dL (13.5-17.5); Lymphocytes # (auto) 0.7 10 ^3/uL (0.4-5.4); Lymphocytes % (auto) 4.8 % (10.0-50.0); Mean Corpuscular Hemoglobin 22.3 pg (28.0-32.0); Mean Corpuscular Hgb Conc. 29.7 g/dL (32.0-36.0); Mean Corpuscular Volume 75.1 fL (80.0-100.0); Monocytes % (auto) 2.3 % (0.0-12.0); Neutrophils % (auto) 92.8 % (37.0-80.0); Nucleated Red Blood Cells % 0.4 %; Red Blood Cells 3.56 10^6/uL (4.5-5.90); White Blood Cell 15.2 10^3/uL (4.4-10.8)
[2021-11-13 05:58] LABS: Potassium 2.9 mmol/L (3.5-5.1)
[2021-11-13 06:08] LABS: Red Cell Distribution Width 25.8 % (11.8-14.3)
[2021-11-13] MEDS: PHENYLEPHRINE IV 250 ML IV SCH ×3 (07:00→22:30)
[2021-11-13] MEDS: POTASSIUM CHL 10MEQ/50ML 50 ML IV SCH ×12 (08:16→18:58)
[2021-11-13] MEDS: DexAMETHasone SOD PHOS 10MG/1ML VIAL INJ IV SCH (09:20)
[2021-11-13] MEDS: FERROUS SULFATE 325mg EC TAB PO SCH ×3 (09:20→17:42)
[2021-11-13] MEDS: ZINC SULFATE 220mg CAP or TAB PO SCH (09:21)
[2021-11-13] MEDS: CHOLECALCIFEROL (VITD3) 2,000 UNIT CAP/TAB PO SCH (09:21)
[2021-11-13] MEDS: PANTOPRAZOLE 40 MG/10 ML VIAL INJ IV SCH (09:21)
[2021-11-13] MEDS: ASCORBIC ACID 500 MG TAB PO SCH ×2 (09:21→22:00)
[2021-11-13] MEDS: oxyCODONE ER 10 MG TAB PO SCH ×2 (10:00→22:00)
[2021-11-13] MEDS: VANCOMYCIN 1GM/250ML 250 ML IV SCH (10:31)
[2021-11-13 12:05] LABS: BUN/Creatinine Ratio 17.4; Potassium 4.1 mmol/L (3.5-5.1)
[2021-11-13] MEDS: PROPOFOL 100 ML IV SCH (13:35)
[2021-11-13] MEDS: NOREPINEPHRINE 8 MG/250ML KIT 250 ML IV SCH (20:30)
[2021-11-14] VITALS (16 sets, daily range): BP systolic 104–136; BP diastolic 60–86
[2021-11-14] MEDS: ENOXAPARIN SOD 60 MG/0.6 ML SYRINGE SC SCH ×2 (03:30→16:06)
[2021-11-14 04:58] LABS: BUN/Creatinine Ratio 25.5; Calcium 7.7 mg/dL (8.5-10.1); Potassium 4.5 mmol/L (3.5-5.1)
[2021-11-14] MEDS: MEROPENEM 1GM IVPB 100 ML IV SCH ×3 (05:21→22:00)
[2021-11-14] MEDS ORDERED: DEXTROSE 50% SYRINGE 50 ML IV ONE ×2 (05:49→23:59)
[2021-11-14] MEDS: PHENYLEPHRINE IV 250 ML IV SCH ×3 (06:50→23:30)
[2021-11-14] MEDS: SOD CHL 0.45% 1,000 ML IV SCH (08:30)
[2021-11-14] MEDS: PROPOFOL 100 ML IV SCH (08:38)
[2021-11-14] MEDS ORDERED: SODIUM BICARBONATE 8.4 % INJ 50ML VIAL IV ONE (09:15)
[2021-11-14] MEDS: PANTOPRAZOLE 40 MG/10 ML VIAL INJ IV SCH (09:16)
[2021-11-14] MEDS: DexAMETHasone SOD PHOS 10MG/1ML VIAL INJ IV SCH (09:16)
[2021-11-14] MEDS: CHOLECALCIFEROL (VITD3) 2,000 UNIT CAP/TAB PO SCH (09:16)
[2021-11-14] MEDS: ZINC SULFATE 220mg CAP or TAB PO SCH (09:17)
[2021-11-14] MEDS: FERROUS SULFATE 325mg EC TAB PO SCH ×3 (09:17→16:06)
[2021-11-14] MEDS: ASCORBIC ACID 500 MG TAB PO SCH ×2 (09:17→22:00)
[2021-11-14] MEDS: oxyCODONE ER 10 MG TAB PO SCH ×2 (10:00→22:00)
[2021-11-14] MEDS: D5W 5% 1,000 ML IV SCH (11:00)
[2021-11-14 15:05] LABS: Basophils # (auto) 0 10 ^3/uL (0-0.2); Eosinophils # (auto) 0 10 ^3/uL (0-0.8); Lymphocytes # (auto) 0.3 10 ^3/uL (0.4-5.4); Monocytes # (auto) 0.1 10 ^3/uL (0-1.3); White Blood Cell 10.1 10^3/uL (4.4-10.8)
[2021-11-14 15:07] LABS: Hematocrit 27.4 % (41.0-53.0); Hemoglobin 8.6 g/dL (13.5-17.5); Mean Corpuscular Hemoglobin 23.2 pg (28.0-32.0); Mean Corpuscular Hgb Conc. 31.5 g/dL (32.0-36.0); Mean Corpuscular Volume 73.9 fL (80.0-100.0); Monocytes % (auto) 1.4 % (0.0-12.0); Neutrophils # (auto) 9.7 10 ^3/uL (1.6-8.6); Neutrophils % (auto) 95.6 % (37.0-80.0); Nucleated Red Blood Cells % 1.2 %; Red Blood Cells 3.71 10^6/uL (4.5-5.90)
[2021-11-14 15:37] LABS: Red Cell Distribution Width 26.3 % (11.8-14.3)
[2021-11-14] MEDS: OXYCODONE W/ ACETAMINOPHEN 5/325MG TABLET PO PRN (16:06)
[2021-11-14] MEDS: NOREPINEPHRINE 8 MG/250ML KIT 250 ML IV SCH (20:30)
[2021-11-14] MEDS: MIDAZOLAM DRIP 50 mg/50mL 50 ML IV SCH (20:30)
[2021-11-14] MEDS: VANCOMYCIN 1GM/250ML 250 ML IV SCH (23:00)
[2021-11-15] VITALS (27 sets, daily range): BP systolic 76–146; BP diastolic 54–84
[2021-11-15] MEDS: HYDROmorphone HCL 2 MG/ML VL IV PRN (02:24)
[2021-11-15] MEDS: ENOXAPARIN SOD 60 MG/0.6 ML SYRINGE SC SCH ×2 (03:30→15:43)
[2021-11-15 04:21] LABS: Basophils # (auto) 0 10 ^3/uL (0-0.2); Eosinophils # (auto) 0 10 ^3/uL (0-0.8); Eosinophils % (auto) 0.2 % (0.0-7.0); Hemoglobin 7.8 g/dL (13.5-17.5); White Blood Cell 11.5 10^3/uL (4.4-10.8)
[2021-11-15 04:22] LABS: Basophils % (auto) 0.2 % (0.0-2.0); Hematocrit 25.1 % (41.0-53.0); Lymphocytes # (auto) 1.5 10 ^3/uL (0.4-5.4); Lymphocytes % (auto) 12.7 % (10.0-50.0); Mean Corpuscular Hemoglobin 23.3 pg (28.0-32.0); Mean Corpuscular Hgb Conc. 31.2 g/dL (32.0-36.0); Mean Corpuscular Volume 74.7 fL (80.0-100.0); Monocytes # (auto) 0.4 10 ^3/uL (0-1.3); Monocytes % (auto) 3.1 % (0.0-12.0); Neutrophils # (auto) 9.6 10 ^3/uL (1.6-8.6); Neutrophils % (auto) 83.8 % (37.0-80.0); Nucleated Red Blood Cells % 0.4 %; Red Blood Cells 3.36 10^6/uL (4.5-5.90)
[2021-11-15 04:27] LABS: Red Cell Distribution Width 26.3 % (11.8-14.3)
[2021-11-15 04:28] LABS: Potassium 3.7 mmol/L (3.5-5.1)
[2021-11-15 04:33] LABS: BUN/Creatinine Ratio 25.8; Calcium 7.5 mg/dL (8.5-10.1); Magnesium 1.4 mg/dL (1.6-2.6)
[2021-11-15] MEDS ORDERED: DEXTROSE 50% SYRINGE 50 ML IV ONE (05:21)
[2021-11-15] MEDS: MEROPENEM 1GM IVPB 100 ML IV SCH ×3 (06:00→22:02)
[2021-11-15] MEDS: D5W 5% 1,000 ML IV SCH (07:00)
[2021-11-15] MEDS: PHENYLEPHRINE IV 250 ML IV SCH ×2 (07:50→16:10)
[2021-11-15] MEDS: FERROUS SULFATE 325mg EC TAB PO SCH ×3 (08:10→17:39)
[2021-11-15] MEDS: oxyCODONE ER 10 MG TAB PO SCH ×2 (09:36→22:04)
[2021-11-15] MEDS: PANTOPRAZOLE 40 MG/10 ML VIAL INJ IV SCH (09:36)
[2021-11-15] MEDS: DexAMETHasone SOD PHOS 10MG/1ML VIAL INJ IV SCH (09:36)
[2021-11-15] MEDS: ZINC SULFATE 220mg CAP or TAB PO SCH (09:36)
[2021-11-15] MEDS: CHOLECALCIFEROL (VITD3) 2,000 UNIT CAP/TAB PO SCH (09:37)
[2021-11-15] MEDS: ASCORBIC ACID 500 MG TAB PO SCH (09:37)
[2021-11-15] MEDS ORDERED: IOHEXOL 350 MG/ML 100ML IJ ONE (11:15)
[2021-11-15] MEDS: MAGNESIUM SULFATE 1GM/100ML 100 ML IV SCH ×2 (12:00→13:00)
[2021-11-15] MEDS: PROPOFOL 100 ML IV SCH (15:00)
[2021-11-15] MEDS: VANCOMYCIN 1GM/250ML 250 ML IV SCH (17:39)
[2021-11-15] MEDS: MIDAZOLAM DRIP 50 mg/50mL 50 ML IV SCH (20:30)
[2021-11-15] MEDS: NOREPINEPHRINE 8 MG/250ML KIT 250 ML IV SCH (20:30)
[2021-11-16] VITALS (27 sets, daily range): BP systolic 81–116; BP diastolic 51–69
[2021-11-16] MEDS: OXYCODONE W/ ACETAMINOPHEN 5/325MG TABLET PO PRN ×2 (00:06→06:17)
[2021-11-16] MEDS: PHENYLEPHRINE IV 250 ML IV SCH ×3 (00:30→17:10)
[2021-11-16] MEDS: PROPOFOL 100 ML IV SCH (02:14)
[2021-11-16] MEDS: D5W 5% 1,000 ML IV SCH ×2 (03:10→23:00)
[2021-11-16] MEDS: MEROPENEM 1GM IVPB 100 ML IV SCH ×3 (05:41→22:00)
[2021-11-16] MEDS: FERROUS SULFATE 325mg EC TAB PO SCH ×3 (08:00→18:00)
[2021-11-16] MEDS: oxyCODONE ER 10 MG TAB PO SCH ×2 (10:00→22:00)
[2021-11-16] MEDS ORDERED: ENOXAPARIN SOD 60 MG/0.6 ML SYRINGE SC SCH (10:00)
[2021-11-16] MEDS: PANTOPRAZOLE 40 MG/10 ML VIAL INJ IV SCH (10:00)
[2021-11-16] MEDS: DexAMETHasone SOD PHOS 4 MG/1ML SDV INJ IV SCH (10:00)
[2021-11-16] MEDS: CHOLECALCIFEROL (VITD3) 2,000 UNIT CAP/TAB PO SCH (10:00)
[2021-11-16 15:57] LABS: Basophils # (auto) 0 10 ^3/uL (0-0.2); Eosinophils # (auto) 0 10 ^3/uL (0-0.8); Hematocrit 27.9 % (41.0-53.0); Hemoglobin 8.9 g/dL (13.5-17.5); Mean Corpuscular Volume 73.9 fL (80.0-100.0); Monocytes # (auto) 0.2 10 ^3/uL (0-1.3); Nucleated Red Blood Cells % 0.1 %; Red Blood Cells 3.78 10^6/uL (4.5-5.90); White Blood Cell 9.5 10^3/uL (4.4-10.8)
[2021-11-16 15:59] LABS: Basophils % (auto) 0.1 % (0.0-2.0); Eosinophils % (auto) 0.2 % (0.0-7.0); Lymphocytes # (auto) 0.4 10 ^3/uL (0.4-5.4); Lymphocytes % (auto) 4.6 % (10.0-50.0); Mean Corpuscular Hemoglobin 23.7 pg (28.0-32.0); Mean Corpuscular Hgb Conc. 32.1 g/dL (32.0-36.0); Monocytes % (auto) 2.4 % (0.0-12.0); Neutrophils # (auto) 8.8 10 ^3/uL (1.6-8.6); Neutrophils % (auto) 92.7 % (37.0-80.0)
[2021-11-16 16:06] LABS: Red Cell Distribution Width 25.6 % (11.8-14.3)
[2021-11-16] MEDS: NOREPINEPHRINE 8 MG/250ML KIT 250 ML IV SCH (20:00)
[2021-11-16] MEDS: MIDAZOLAM DRIP 50 mg/50mL 50 ML IV SCH (20:30)
[2021-11-17] VITALS (18 sets, daily range): BP systolic 84–109; BP diastolic 57–72
[2021-11-17] MEDS ORDERED: DEXTROSE 50% SYRINGE 50 ML IV ONE (00:26)
[2021-11-17] MEDS: PHENYLEPHRINE IV 250 ML IV SCH ×3 (01:30→18:10)
[2021-11-17 04:42] LABS: BUN/Creatinine Ratio 22.5; Calcium 7.7 mg/dL (8.5-10.1); Potassium 3.2 mmol/L (3.5-5.1)
[2021-11-17] MEDS: VANCOMYCIN 1GM/250ML 250 ML IV SCH (05:59)
[2021-11-17] MEDS: MEROPENEM 1GM IVPB 100 ML IV SCH ×3 (05:59→23:48)
[2021-11-17] MEDS: FERROUS SULFATE 325mg EC TAB PO SCH ×3 (08:00→17:25)
[2021-11-17] MEDS: PANTOPRAZOLE 40 MG/10 ML VIAL INJ IV SCH (09:31)
[2021-11-17] MEDS: DexAMETHasone SOD PHOS 4 MG/1ML SDV INJ IV SCH (09:32)
[2021-11-17] MEDS: ENOXAPARIN SOD 40 MG/0.4 ML SYRINGE SC SCH (09:32)
[2021-11-17] MEDS: CHOLECALCIFEROL (VITD3) 2,000 UNIT CAP/TAB PO SCH (10:00)
[2021-11-17] MEDS: oxyCODONE ER 10 MG TAB PO SCH ×2 (10:00→22:24)
[2021-11-17 13:22] LABS: BUN/Creatinine Ratio 20.6; Calcium 7.9 mg/dL (8.5-10.1); Potassium 3.2 mmol/L (3.5-5.1)
[2021-11-17] MEDS: D5W 5% 1,000 ML IV SCH (13:31)
[2021-11-17] MEDS ORDERED: POTASSIUM CHL 10MEQ/50ML 200 ML IV ONE (14:27)
[2021-11-17] MEDS: POTASSIUM CHL 10MEQ/50ML 50 ML IV SCH ×4 (14:40→23:30)
[2021-11-17] MEDS ORDERED: MORPHINE SULFATE INJECTION 2 MG/ML SYRG ONE (14:57)
[2021-11-17] MEDS ORDERED: MORPHINE SULFATE INJECTION 2 MG/ML SYRG IV PRN (15:00)
[2021-11-17] MEDS: MORPHINE SULFATE INJECTION 2 MG/ML SYRG IV PRN (19:07)
[2021-11-17] MEDS ORDERED: POTASSIUM CHL 10MEQ/50ML 50 ML IV ONE (23:15)
[2021-11-18 05:00] VITALS: BP 106/68
[2021-11-18] MEDS: MEROPENEM 1GM IVPB 100 ML IV SCH ×3 (06:14→21:35)
[2021-11-18] MEDS: MORPHINE SULFATE INJECTION 2 MG/ML SYRG IV PRN ×4 (06:27→20:42)
[2021-11-18 06:50] LABS: Calcium 8.2 mg/dL (8.5-10.1)
[2021-11-18 06:54] LABS: Basophils # (auto) 0 10 ^3/uL (0-0.2); Basophils % (auto) 0.1 % (0.0-2.0); Monocytes # (auto) 0.4 10 ^3/uL (0-1.3); Nucleated Red Blood Cells % 0.1 %
[2021-11-18 06:56] LABS: BUN/Creatinine Ratio 20.3
[2021-11-18 06:58] LABS: Eosinophils # (auto) 0.1 10 ^3/uL (0-0.8); Eosinophils % (auto) 0.9 % (0.0-7.0); Hemoglobin 8.7 g/dL (13.5-17.5); Lymphocytes # (auto) 0.9 10 ^3/uL (0.4-5.4); Lymphocytes % (auto) 11.2 % (10.0-50.0); Mean Corpuscular Hemoglobin 23.9 pg (28.0-32.0); Mean Corpuscular Hgb Conc. 31.3 g/dL (32.0-36.0); Mean Corpuscular Volume 76.5 fL (80.0-100.0); Monocytes % (auto) 5.3 % (0.0-12.0); Neutrophils # (auto) 6.7 10 ^3/uL (1.6-8.6); Neutrophils % (auto) 82.5 % (37.0-80.0); Red Blood Cells 3.66 10^6/uL (4.5-5.90); Red Cell Distribution Width 24.2 % (11.8-14.3); White Blood Cell 8.1 10^3/uL (4.4-10.8)
[2021-11-18 08:10] VITALS: BP 104/68
[2021-11-18] MEDS: FERROUS SULFATE 325mg EC TAB PO SCH ×3 (08:10→18:00)
[2021-11-18] MEDS: PANTOPRAZOLE 40 MG/10 ML VIAL INJ IV SCH (09:49)
[2021-11-18] MEDS: DexAMETHasone SOD PHOS 4 MG/1ML SDV INJ IV SCH (09:49)
[2021-11-18] MEDS: CHOLECALCIFEROL (VITD3) 2,000 UNIT CAP/TAB PO SCH (09:49)
[2021-11-18] MEDS: ENOXAPARIN SOD 40 MG/0.4 ML SYRINGE SC SCH (09:49)
[2021-11-18] MEDS: oxyCODONE ER 10 MG TAB PO SCH ×2 (09:49→21:35)
[2021-11-18] MEDS ORDERED: VANCOMYCIN 1GM/250ML 250 ML IV SCH (12:00)
[2021-11-18] MEDS: Ensure HIGH Protein Chocolate 8oz Bottle PO SCH ×2 (12:09→18:41)
[2021-11-18 12:29] VITALS: BP 99/68
[2021-11-18] MEDS: D5W 5% 1,000 ML IV SCH (16:15)
[2021-11-18 17:00] VITALS: BP 101/70
[2021-11-18] MEDS: ENOXAPARIN SOD 60 MG/0.6 ML SYRINGE SC SCH (21:35)
[2021-11-18 21:48] VITALS: BP 102/69
[2021-11-19] MEDS: oxyCODONE ER 10 MG TAB PO SCH ×3 (00:10→21:26)
[2021-11-19] MEDS: MORPHINE SULFATE INJECTION 2 MG/ML SYRG IV PRN ×5 (01:40→23:33)
[2021-11-19 05:00] VITALS: BP 105/72
[2021-11-19] MEDS: MEROPENEM 1GM IVPB 100 ML IV SCH ×3 (06:54→21:26)
[2021-11-19 08:00] VITALS: BP 95/63
[2021-11-19] MEDS: Ensure HIGH Protein Chocolate 8oz Bottle PO SCH ×3 (08:00→17:29)
[2021-11-19] MEDS: FERROUS SULFATE 325mg EC TAB PO SCH ×3 (08:00→17:29)
[2021-11-19 10:22] LABS: Basophils # (auto) 0 10 ^3/uL (0-0.2); Eosinophils # (auto) 0.1 10 ^3/uL (0-0.8); Eosinophils % (auto) 1.3 % (0.0-7.0); Neutrophils # (auto) 4.8 10 ^3/uL (1.6-8.6); Neutrophils % (auto) 79.6 % (37.0-80.0)
[2021-11-19 10:23] LABS: Basophils % (auto) 0.8 % (0.0-2.0); Hematocrit 27.5 % (41.0-53.0); Hemoglobin 8.6 g/dL (13.5-17.5); Lymphocytes # (auto) 0.9 10 ^3/uL (0.4-5.4); Lymphocytes % (auto) 14.2 % (10.0-50.0); Mean Corpuscular Hemoglobin 23.7 pg (28.0-32.0); Mean Corpuscular Hgb Conc. 31.3 g/dL (32.0-36.0); Monocytes # (auto) 0.2 10 ^3/uL (0-1.3); Monocytes % (auto) 4.1 % (0.0-12.0); Nucleated Red Blood Cells % 0.3 %; Red Blood Cells 3.64 10^6/uL (4.5-5.90); White Blood Cell 6.1 10^3/uL (4.4-10.8)
[2021-11-19] MEDS: DexAMETHasone SOD PHOS 4 MG/1ML SDV INJ IV SCH (10:30)
[2021-11-19] MEDS: CHOLECALCIFEROL (VITD3) 2,000 UNIT CAP/TAB PO SCH (10:31)
[2021-11-19] MEDS: PANTOPRAZOLE 40 MG/10 ML VIAL INJ IV SCH (10:31)
[2021-11-19] MEDS: ENOXAPARIN SOD 60 MG/0.6 ML SYRINGE SC SCH ×2 (10:32→21:26)
[2021-11-19 10:36] LABS: Potassium 3.5 mmol/L (3.5-5.1)
[2021-11-19 10:37] LABS: Mean Corpuscular Volume 75.6 fL (80.0-100.0)
[2021-11-19 10:46] LABS: BUN/Creatinine Ratio 28.2; Calcium 8.1 mg/dL (8.5-10.1)
[2021-11-19] MEDS: D5W 5% 1,000 ML IV SCH (11:28)
[2021-11-19 12:50] LABS: INR 1.56 (0.9-1.15); Partial Thromboplastin Time 38.4 sec (23.6-33.0)
[2021-11-19 13:00] VITALS: BP 93/65
[2021-11-19 13:05] VITALS: BP 102/63
[2021-11-19 16:00] VITALS: BP 109/52
[2021-11-19 22:00] VITALS: BP 101/71
[2021-11-20 05:00] VITALS: BP 94/65
[2021-11-20 05:37] LABS: Basophils # (auto) 0 10 ^3/uL (0-0.2); Eosinophils # (auto) 0.1 10 ^3/uL (0-0.8); Lymphocytes # (auto) 0.8 10 ^3/uL (0.4-5.4); Monocytes # (auto) 0.3 10 ^3/uL (0-1.3); Neutrophils # (auto) 4.2 10 ^3/uL (1.6-8.6); White Blood Cell 5.4 10^3/uL (4.4-10.8)
[2021-11-20 05:42] LABS: Basophils % (auto) 0.8 % (0.0-2.0); Eosinophils % (auto) 1.4 % (0.0-7.0); Hematocrit 23.9 % (41.0-53.0); Hemoglobin 7.8 g/dL (13.5-17.5); Mean Corpuscular Hemoglobin 24.3 pg (28.0-32.0); Mean Corpuscular Hgb Conc. 32.5 g/dL (32.0-36.0); Mean Corpuscular Volume 74.7 fL (80.0-100.0); Monocytes % (auto) 4.9 % (0.0-12.0); Neutrophils % (auto) 77.9 % (37.0-80.0); Nucleated Red Blood Cells % 0.3 %
[2021-11-20 05:45] LABS: Red Cell Distribution Width 23.8 % (11.8-14.3)
[2021-11-20 05:50] LABS: % Iron Saturation 28.3 % (20-55); BUN/Creatinine Ratio 16.7
[2021-11-20 06:30] LABS: Potassium 2.9 mmol/L (3.5-5.1)
[2021-11-20] MEDS: MEROPENEM 1GM IVPB 100 ML IV SCH ×3 (06:40→22:18)
[2021-11-20] MEDS: D5W 5% 1,000 ML IV SCH (06:52)
[2021-11-20] MEDS: FERROUS SULFATE 325mg EC TAB PO SCH ×4 (08:00→18:10)
[2021-11-20] MEDS: Ensure HIGH Protein Chocolate 8oz Bottle PO SCH ×3 (08:41→18:00)
[2021-11-20] MEDS: MORPHINE SULFATE INJECTION 2 MG/ML SYRG IV PRN ×4 (09:08→23:41)
[2021-11-20] MEDS: DexAMETHasone SOD PHOS 4 MG/1ML SDV INJ IV SCH (09:45)
[2021-11-20] MEDS: PANTOPRAZOLE 40 MG/10 ML VIAL INJ IV SCH (09:45)
[2021-11-20] MEDS: CHOLECALCIFEROL (VITD3) 2,000 UNIT CAP/TAB PO SCH (09:45)
[2021-11-20] MEDS: ENOXAPARIN SOD 60 MG/0.6 ML SYRINGE SC SCH ×2 (09:46→22:18)
[2021-11-20] MEDS: oxyCODONE ER 10 MG TAB PO SCH ×3 (11:14→23:19)
[2021-11-20] MEDS: MAGNESIUM SULFATE 1GM/100ML 100 ML IV SCH ×2 (12:06→13:14)
[2021-11-20 13:00] VITALS: BP 97/61
[2021-11-20] MEDS: POTASSIUM CHL 10MEQ/50ML 50 ML IV SCH ×6 (14:14→19:05)
[2021-11-20 16:24] LABS: Carcinoembryonic Antigen 1.42 ng/mL (<5.0 OR =)
[2021-11-20 16:25] LABS: Folate (Folic Acid) 1.81 ng/mL (5.38-24)
[2021-11-20 22:00] VITALS: BP 98/66
[2021-11-21] MEDS: MORPHINE SULFATE INJECTION 2 MG/ML SYRG IV PRN (04:57)
[2021-11-21 05:00] VITALS: BP 101/64
[2021-11-21] MEDS: MEROPENEM 1GM IVPB 100 ML IV SCH ×3 (05:37→22:29)
[2021-11-21] MEDS: D5W 5% 1,000 ML IV SCH ×2 (05:59→23:00)
[2021-11-21 08:00] VITALS: BP 84/50
[2021-11-21] MEDS: Ensure HIGH Protein Chocolate 8oz Bottle PO SCH ×3 (08:00→18:00)
[2021-11-21] MEDS: FERROUS SULFATE 325mg EC TAB PO SCH ×3 (08:00→17:44)
[2021-11-21 08:06] LABS: Immunoglobulin G, Serum 1496 mg/dL (603-1613)
[2021-11-21] MEDS: PANTOPRAZOLE 40 MG/10 ML VIAL INJ IV SCH ×2 (09:07→22:29)
[2021-11-21] MEDS: DexAMETHasone SOD PHOS 4 MG/1ML SDV INJ IV SCH (09:07)
[2021-11-21] MEDS: oxyCODONE ER 10 MG TAB PO SCH (09:07)
[2021-11-21] MEDS: ENOXAPARIN SOD 60 MG/0.6 ML SYRINGE SC SCH ×2 (09:08→22:29)
[2021-11-21] MEDS: CHOLECALCIFEROL (VITD3) 2,000 UNIT CAP/TAB PO SCH (09:08)
[2021-11-21 09:13] LABS: Basophils # (auto) 0 10 ^3/uL (0-0.2); Basophils % (auto) 0.7 % (0.0-2.0); Hemoglobin 7.2 g/dL (13.5-17.5); Monocytes # (auto) 0.3 10 ^3/uL (0-1.3); Neutrophils # (auto) 3.8 10 ^3/uL (1.6-8.6); Nucleated Red Blood Cells % 0.1 %; Red Blood Cells 3.01 10^6/uL (4.5-5.90)
[2021-11-21 09:15] LABS: Eosinophils # (auto) 0 10 ^3/uL (0-0.8); Eosinophils % (auto) 0.9 % (0.0-7.0); Hematocrit 22.6 % (41.0-53.0); Lymphocytes # (auto) 0.7 10 ^3/uL (0.4-5.4); Lymphocytes % (auto) 14.7 % (10.0-50.0); Mean Corpuscular Hgb Conc. 31.9 g/dL (32.0-36.0); Monocytes % (auto) 5.4 % (0.0-12.0); Neutrophils % (auto) 78.3 % (37.0-80.0); White Blood Cell 4.8 10^3/uL (4.4-10.8)
[2021-11-21 09:19] LABS: Mean Corpuscular Volume 75.3 fL (80.0-100.0); Red Cell Distribution Width 23.5 % (11.8-14.3)
[2021-11-21 09:24] LABS: BUN/Creatinine Ratio 16.3; Calcium 7.7 mg/dL (8.5-10.1); Potassium 3.4 mmol/L (3.5-5.1)
[2021-11-21] MEDS ORDERED: HYDROCORTISONE SOD SUCC 100 MG/2ML INJ VIAL IV ONE ×2 (11:00)
[2021-11-21] MEDS ORDERED: SODIUM CHLORIDE 0.9% 500 ML IV ONE (11:00)
[2021-11-21 12:00] VITALS: BP 100/63
[2021-11-21] MEDS: OXYCODONE W/ ACETAMINOPHEN 5/325MG TABLET PO PRN (15:45)
[2021-11-21] MEDS: oxyCODONE HCL 5MG TAB PO SCH (17:45)
[2021-11-21] MEDS ORDERED: oxyCODONE ER 10 MG TAB PO SCH (18:00)
[2021-11-21 22:00] VITALS: BP 105/67
[2021-11-22] MEDS: oxyCODONE HCL 5MG TAB PO SCH ×4 (00:07→17:35)
[2021-11-22] MEDS: MEROPENEM 1GM IVPB 100 ML IV SCH ×3 (06:28→21:51)
[2021-11-22 08:04] LABS: BUN/Creatinine Ratio 20.6; Calcium 8.1 mg/dL (8.5-10.1)
[2021-11-22 08:14] LABS: Basophils # (auto) 0 10 ^3/uL (0-0.2); Basophils % (auto) 0.4 % (0.0-2.0); Eosinophils # (auto) 0 10 ^3/uL (0-0.8); Hemoglobin 7.5 g/dL (13.5-17.5); Lymphocytes # (auto) 0.9 10 ^3/uL (0.4-5.4); Lymphocytes % (auto) 18.4 % (10.0-50.0); Mean Corpuscular Hemoglobin 25.5 pg (28.0-32.0); Mean Corpuscular Volume 75.2 fL (80.0-100.0); Monocytes # (auto) 0.2 10 ^3/uL (0-1.3); Monocytes % (auto) 4.7 % (0.0-12.0); Neutrophils # (auto) 3.6 10 ^3/uL (1.6-8.6); Neutrophils % (auto) 75.5 % (37.0-80.0); Nucleated Red Blood Cells % 0.2 %; Red Blood Cells 2.93 10^6/uL (4.5-5.90); Red Cell Distribution Width 23.1 % (11.8-14.3); White Blood Cell 4.7 10^3/uL (4.4-10.8)
[2021-11-22] MEDS: FERROUS SULFATE 325mg EC TAB PO SCH ×2 (09:34→17:35)
[2021-11-22] MEDS: PANTOPRAZOLE 40 MG/10 ML VIAL INJ IV SCH ×2 (09:34→21:52)
[2021-11-22] MEDS: Ensure HIGH Protein Chocolate 8oz Bottle PO SCH ×3 (09:34→17:35)
[2021-11-22] MEDS: CHOLECALCIFEROL (VITD3) 2,000 UNIT CAP/TAB PO SCH (09:34)
[2021-11-22] MEDS: ENOXAPARIN SOD 60 MG/0.6 ML SYRINGE SC SCH ×2 (09:35→21:52)
[2021-11-22 09:36] VITALS: BP 81/39
[2021-11-22 13:13] VITALS: BP 96/63
[2021-11-22] MEDS: D5W 5% 1,000 ML IV SCH (13:26)
[2021-11-22 17:00] VITALS: BP 93/62
[2021-11-22] MEDS ORDERED: POTASSIUM CHL 10MEQ/50ML 50 ML IV ONE (17:00)
[2021-11-22] MEDS ORDERED: POTASSIUM CHL 20 Meq TABLET PO ONE (17:00)
[2021-11-22] MEDS: OXYCODONE W/ ACETAMINOPHEN 5/325MG TABLET PO PRN (20:21)
[2021-11-22 22:00] VITALS: BP 102/58
[2021-11-23] MEDS: oxyCODONE HCL 5MG TAB PO SCH ×6 (00:25→23:56)
[2021-11-23 05:00] VITALS: BP 92/55
[2021-11-23] MEDS: MEROPENEM 1GM IVPB 100 ML IV SCH ×3 (05:56→21:25)
[2021-11-23 08:20] VITALS: BP 104/60
[2021-11-23] MEDS: Ensure HIGH Protein Chocolate 8oz Bottle PO SCH ×3 (08:42→18:03)
[2021-11-23] MEDS: CHOLECALCIFEROL (VITD3) 2,000 UNIT CAP/TAB PO SCH (08:42)
[2021-11-23] MEDS: FERROUS SULFATE 325mg EC TAB PO SCH ×2 (08:42→18:03)
[2021-11-23] MEDS: PANTOPRAZOLE 40 MG/10 ML VIAL INJ IV SCH ×2 (08:42→21:25)
[2021-11-23] MEDS: ENOXAPARIN SOD 60 MG/0.6 ML SYRINGE SC SCH ×2 (08:42→21:25)
[2021-11-23] MEDS: OXYCODONE W/ ACETAMINOPHEN 5/325MG TABLET PO PRN (08:43)
[2021-11-23] MEDS: D5W 5% 1,000 ML IV SCH (12:59)
[2021-11-23 13:02] VITALS: BP 98/51
[2021-11-23 17:18] VITALS: BP 102/64
[2021-11-23 22:00] VITALS: BP 94/62
[2021-11-24] MEDS: OXYCODONE W/ ACETAMINOPHEN 5/325MG TABLET PO PRN (04:26)
[2021-11-24 05:00] VITALS: BP 78/50
[2021-11-24] MEDS: MEROPENEM 1GM IVPB 100 ML IV SCH ×3 (05:40→21:24)
[2021-11-24] MEDS: oxyCODONE HCL 5MG TAB PO SCH ×4 (05:55→23:20)
[2021-11-24] MEDS: Ensure HIGH Protein Chocolate 8oz Bottle PO SCH ×3 (08:00→18:00)
[2021-11-24 09:00] VITALS: BP 85/46
[2021-11-24] MEDS: FERROUS SULFATE 325mg EC TAB PO SCH ×2 (09:32→17:56)
[2021-11-24] MEDS: CHOLECALCIFEROL (VITD3) 2,000 UNIT CAP/TAB PO SCH (10:28)
[2021-11-24] MEDS: PANTOPRAZOLE 40 MG/10 ML VIAL INJ IV SCH ×2 (10:28→21:24)
[2021-11-24] MEDS: ENOXAPARIN SOD 60 MG/0.6 ML SYRINGE SC SCH ×2 (10:28→21:25)
[2021-11-24] MEDS: D5W 5% 1,000 ML IV SCH (11:00)
[2021-11-24 13:00] VITALS: BP 96/56
[2021-11-24 17:00] VITALS: BP 90/50
[2021-11-24] MEDS ORDERED: FOLIC ACID 1 MG TAB PO SCH (18:30)
[2021-11-24] MEDS ORDERED: FOLI1TAB6 PO (18:48)
[2021-11-24] MEDS ORDERED: APIX5TAB OR (18:48)
[2021-11-24] MEDS ORDERED: PANT40TA2 PO (18:48)
[2021-11-24] MEDS ORDERED: FER325T PO (18:48)
[2021-11-24 20:06] LABS: Calcium 7.5 mg/dL (8.5-10.1); Potassium 3.2 mmol/L (3.5-5.1)
[2021-11-24 20:08] LABS: BUN/Creatinine Ratio 13.6
[2021-11-24 22:00] VITALS: BP 84/57
[2021-11-25 05:00] VITALS: BP 92/64
[2021-11-25] MEDS: MEROPENEM 1GM IVPB 100 ML IV SCH ×2 (05:25→14:00)
[2021-11-25] MEDS: oxyCODONE HCL 5MG TAB PO SCH (05:26)
[2021-11-25] MEDS: D5W 5% 1,000 ML IV SCH (06:56)
[2021-11-25] MEDS: FERROUS SULFATE 325mg EC TAB PO SCH (08:00)
[2021-11-25] MEDS: Ensure HIGH Protein Chocolate 8oz Bottle PO SCH ×2 (08:00→12:00)
[2021-11-25] MEDS: ENOXAPARIN SOD 60 MG/0.6 ML SYRINGE SC SCH (10:00)
[2021-11-25] MEDS: PANTOPRAZOLE 40 MG/10 ML VIAL INJ IV SCH (10:00)
[2021-11-25] MEDS: CHOLECALCIFEROL (VITD3) 2,000 UNIT CAP/TAB PO SCH (10:00)
[2021-11-25] MEDS ORDERED: oxyCODONE HCL 5MG TAB PO SCH (12:00)
== END 2021-11-25 16:25 | disposition home health service (06) | DRG 720 ==
LOC: ER 11:06 → EDBD 11:06 → TELE 17:18 → TELE-EAST 20:41 → ICU WEST 11-11 16:09 → TELE-EAST 11-17 20:44
PROVIDERS: ADMIT Internal Medicine; ATTEND Internal Medicine
PROC: XW033E5 Introduction of Remdesivir Anti-infective into Peripheral Vein, Percutaneous Approach, New Technology Group 5 (ICD-10-PCS; 2021-11-05)
PROC: 05HA33Z Insertion of Infusion Device into Left Brachial Vein, Percutaneous Approach (ICD-10-PCS; principal; 2021-11-06)
PROC: B54NZZA Ultrasonography of Left Upper Extremity Veins, Guidance (ICD-10-PCS; 2021-11-06)
PROC: 30233N1 Transfusion of Nonautologous Red Blood Cells into Peripheral Vein, Percutaneous Approach (ICD-10-PCS; 2021-11-07)
PROC: 5A1955Z Respiratory Ventilation, Greater than 96 Consecutive Hours (ICD-10-PCS; 2021-11-11)
PROC: 0BH17EZ Insertion of Endotracheal Airway into Trachea, Via Natural or Artificial Opening (ICD-10-PCS; 2021-11-11)
PROC: 03HB33Z Insertion of Infusion Device into Right Radial Artery, Percutaneous Approach (ICD-10-PCS; 2021-11-11)
PROC: B34HZZZ Ultrasonography of Right Upper Extremity Arteries (ICD-10-PCS; 2021-11-11)
PROC: 02HV33Z Insertion of Infusion Device into Superior Vena Cava, Percutaneous Approach (ICD-10-PCS; 2021-11-11)
PROC: B548ZZA Ultrasonography of Superior Vena Cava, Guidance (ICD-10-PCS; 2021-11-11)
PROC: 5A12012 Performance of Cardiac Output, Single, Manual (ICD-10-PCS; 2021-11-11)
DX: A41.89 Other specified sepsis (principal); J96.01 Acute respiratory failure with hypoxia; N17.0 Acute kidney failure with tubular necrosis; J12.82 Pneumonia due to coronavirus disease 2019; R57.9 Shock, unspecified; E44.1 Mild protein-calorie malnutrition; U07.1 COVID-19; E87.0 Hyperosmolality and hypernatremia; L89.159 Pressure ulcer of sacral region, unspecified stage; D63.8 Anemia in other chronic diseases classified elsewhere; I82.621 Acute embolism and thrombosis of deep veins of right upper extremity; E87.1 Hypo-osmolality and hyponatremia; E88.09 Other disorders of plasma-protein metabolism, not elsewhere classified; J98.11 Atelectasis; L89.95 Pressure ulcer of unspecified site, unstageable; N39.0 Urinary tract infection, site not specified; R53.81 Other malaise; E87.8 Other disorders of electrolyte and fluid balance, not elsewhere classified; G82.20 Paraplegia, unspecified; E87.6 Hypokalemia; Z74.01 Bed confinement status; Z68.24 Body mass index [BMI] 24.0-24.9, adult; Z79.01 Long term (current) use of anticoagulants; Z88.5 Allergy status to narcotic agent; Z80.9 Family history of malignant neoplasm, unspecified; Z83.3 Family history of diabetes mellitus; Z93.3 Colostomy status
CPT/HCPCS: 36415; 36600; 71045; 71260; 74018; 74177; 80048; 80053; 80202; 80307; 81001; 82378; 82565; 82607; 82728; 82746; 82784; 82805; 82962; 83540; 83550; 83605; 83615; 83735; 83883; 84100; 84154; 84484; 85007; 85014; 85018; 85025; 85027; 85045; 85379; 85610; 85730; 86038; 86334; 86850; 86880; 86900; 86901; 86920; 87040; 87070; 87077; 87081; 87186; 87205; 87426; 92610; 93005; 93306; 93971; 94002; 94003; 96361; 96374; 96375; 97110; 97163; 97530; C9113; G0378; J0330; J0696; J1100; J1956; J2185; J2250; J2405; J2704; J3490; J7060